=== PATIENT | male | born 1955 | race Caucasian/White ===

== ENCOUNTER 2020-02-14 17:01 | Emergency (ER) | payer MEDICARE ==
--- NOTE | 2020-02-14 18:05 | EDM.PDOC ---
ED HPI GENERAL MEDICAL PROBLEM - General Chief Complaint: Abdominal Pain Stated Complaint: CHEST/ABDOMINAL PAIN Time Seen by Provider: 02/14/20 17:17 Source of Information: Reports: Patient History Limitations: Reports: No Limitations, Other (The patient exhibits pressured speech and run-on sentences. Difficult to get a word in edgewise her asked specific questions. He does not recall things that I told him earlier in the conversation) - History of Present Illness Onset: Today Duration: Day(s): (3. Patient states that the current episode of pain and nausea and dry heaves has been occurring intermittently for the last 3 days, but he did have a similar episode several weeks ago.), Waxing/Waning Location: Reports: Abdomen, Radiates to (Low back) Quality: Reports: Ache, Stabbing Severity: Severe Worsens with: Reports: Eating (Patient notes that today, approximately 11:00 he had an [employer] dip and a milkshake and shortly thereafter had excruciating pain and dry heaves) Associated Symptoms: Reports: Diaphoresis, Fever/Chills, Loss of Appetite, Nausea/Vomiting. Denies: Chest Pain, Cough, Rash, Shortness of Breath Treatments SPECIAL PROCEDURES NURSE: Reports: Aspirin, NSAIDS - Related Data Allergies Allergy/AdvReac Type Severity Reaction Status Date / Time No Known Allergies Allergy Verified 02/14/20 17:40 Home Meds: Home Meds Clopidogrel [Plavix] 75 mg PO DAILY 11/26/17 [History] Levothyroxine Sodium [Synthroid] 250 mcg PO DAILY 11/26/17 [History] Nitroglycerin [Nitrostat] 0.4 mg SL ASDIRECTED 11/26/17 [History] atorvaSTATin [Lipitor] 40 mg PO DAILY 11/26/17 [History] Aspirin 325 mg PO DAILY 02/14/20 [History] Past Medical History Cardiovascular History: Reports: Angina, Bacterial Endocarditis, High Cholesterol, Hypertension, VT, Stents, Other (See Below) Other Cardiovascular History: pericarditis 10 years ago after a bout of pneumonia, 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 Gastrointestinal History: Reports: Other (See Below) Other Gastrointestinal History: recent no BM since 02/12/2020, hernia near umbilicus Musculoskeletal History: Reports: Back Pain, Chronic Endocrine/Metabolic History: Reports: Hypothyroidism, Obesity/BMI 30+ - Past Surgical History Cardiovascular Surgical History: Reports: Coronary Artery Bypass, Coronary Artery Stent GI Surgical History: Reports: None Social & Family History - Family History Family Medical History: Unobtainable - Tobacco Use Smoking Status *Q: Former Smoker Packs/Tins Daily: 1 Used Tobacco, but Quit: Yes Month/Year Tobacco Last Used: 06/2012 Second Hand Smoke Exposure: Yes - Caffeine Use Caffeine Use: Reports: Coffee - Recreational Drug Use Recreational Drug Use: No - Living Situation & Occupation Living situation: Reports: ED ROS GENERAL - Review of Systems Review Of Systems: See Below Constitutional: Reports: Chills, Diaphoresis, Decreased Appetite HEENT: Reports: No Symptoms Respiratory: Denies: Shortness of Breath, Wheezing, Pleuritic Chest Pain, Cough Cardiovascular: Denies: Chest Pain, Palpitations GI/Abdominal: Reports: Abdominal Pain, Decreased Appetite, Nausea, Vomiting Musculoskeletal: Reports: No Symptoms Skin: Reports: Pruritis. Denies: Rash (Complains of itching when I first enter the room but no rash seen) Neurological: Reports: No Symptoms ED EXAM, GI/ABD - Physical Exam Exam: See Below Exam Limited By: Other (The patient repeatedly interrupts this examiner and clearly does not listen to me when I am trying to explain planned evaluation and treatment in the ED) General Appearance: Alert, Anxious, Obese Eyes: Bilateral: Normal Appearance (Very mild bilateral scleral icterus), EOMI Ears: Normal External Exam Nose: Normal Inspection Throat/Mouth: Other (very dry mucous membranes) Head: Atraumatic, Normocephalic Neck: Normal Inspection, Supple, Non-Tender Respiratory/Chest: No Respiratory Distress, Lungs Clear, Normal Breath Sounds Cardiovascular: Normal Peripheral Pulses, Regular Rate, Rhythm, No Murmur GI/Abdominal Exam: Normal Bowel Sounds, Distended, Hepatomegaly, Splenomegaly, Other (midline ventral hernia). No: Guarding, Rebound Back Exam: Full Range of Motion Extremities: Normal Inspection, Normal Range of Motion Neurological: Alert, Oriented Psychiatric: Anxious Skin Exam: Warm, Dry, Intact, No Rash. No: Jaundice Lymphatic: No Adenopathy EKG INTERPRETATION EKG Date: 02/14/20 Time: 19:00 Rhythm: NSR Rate (Beats/Min): 89 Sharon: Normal P-Wave: Present QRS: Normal ST-T: Normal Course - Vital Signs Text/Narrative:: Differential diagnosis after initial evaluation includes inferior cardiac ischemia, cholelithiasis, cholecystitis, pancreatitis, gastritis, peptic ulcer disease, viral gastroenteritis, sepsis. The patient initially appears dehydrated and has abdominal pain, nausea, and vomiting. We'll treat initially with a 1 L IV fluid bolus, IV Dilaudid, and IV Zofran. At 2024 I am informed by spray technician that ultrasound does show multiple gallstones some of which appear to be in the duct. Gallbladder wall is very slightly thickened (4 mm). At 2044 I discussed the patient with Dr. Espinoza who recommended the patient received ERCP at an outside facility. He would like to see the patient back in clinic early this week. At 2049 hrs. I discussed the patient with GI specialist Dr. Kay from [facility] who recommended the patient be admitted there for ERCP to be done tomorrow. The patient has been accepted for transfer to [facility] by Dr. Lopez at 2100 hrs. Last Recorded V/S: Last Vital Signs Temp 37.7 C 02/14/20 18:02 Pulse 96 02/14/20 18:02 Resp 15 02/14/20 18:02 BP 149/64 H 02/14/20 18:02 Pulse Ox 93 L 02/14/20 18:02 - Orders/Labs/Meds Orders: Active Orders 24 hr Category Date Time Status EKG Documentation Completion [RC] ASDIRECTED Care 02/14/20 18:26 Active NPO [Nothing Per Oral Diet] [DIET] Diet 02/15/20 Breakfast Active Chest 2V [CR] Stat Exams 02/14/20 18:24 Taken EKG 12 Lead [EK] Urgent Ther 02/14/20 18:24 Ordered Labs: Laboratory Tests 02/14/20 02/14/20 02/14/20 Range/Units 18:24 18:41 18:41 WBC 10.5 (4.5-11.0) K/uL RBC 5.27 (4.30-5.90) M/uL Hgb 15.2 H (12.0-15.0) g/dL Hct 46.7 (40.0-54.0) % MCV 89 (80-98) fL MCH 29 (27-31) pg MCHC 33 (32-36) % Plt Count 220 (150-400) K/uL PT (9.5-12.0) sec INR (0.80-1.20) Sodium (140-148) mmol/L Potassium (3.6-5.2) mmol/L Chloride (100-108) mmol/L Carbon Dioxide (21-32) mmol/L Anion Gap (5.0-14.0) mmol/L BUN (7-18) mg/dL Creatinine (0.8-1.3) mg/dL Est Cr Clr Drug Dosing mL/min Estimated GFR (MDRD) (>60) Glucose (74-106) mg/dL Lactic Acid (0.4-2.0) mmol/L Calcium (8.5-10.1) mg/dL Total Bilirubin (0.2-1.0) mg/dL AST (15-37) U/L ALT (12-78) U/L Alkaline Phosphatase (46-116) U/L Troponin I < 0.017 (0.000-0.056) ng/mL Total Protein (6.4-8.2) g/dL Albumin (3.4-5.0) g/dL Globulin (2.3-3.5) g/dL Albumin/Globulin Ratio (1.2-2.2) Lipase 756 H (73-393) U/L TSH, Ultra Sensitive (0.358-3.740) uIU/mL Urine Color Brown A (YELLOW) Urine Appearance Slightly cloudy A (CLEAR) Urine pH 5.5 (5.0-8.0) Ur Specific [place] >= 1.030 (1.008-1.030) Urine Protein >=300 H (NEGATIVE) mg/dL Urine Glucose (UA) Negative (NEGATIVE) mg/dL Urine Ketones Trace H (NEGATIVE) mg/dL Urine Occult Blood Moderate H (NEGATIVE) Urine Nitrite Negative (NEGATIVE) Urine Bilirubin Large H (NEGATIVE) Urine Urobilinogen 0.2 (0.2-1.0) EU/dL Ur Leukocyte Esterase Negative (NEGATIVE) Urine RBC 10-20 H (0-5) Urine WBC Not seen (0-5) Ur Epithelial Cells Not seen Amorphous Sediment Few Urine Bacteria Few Urine Mucus Many Urine Other See note 02/14/20 02/14/20 02/14/20 Range/Units 18:41 18:41 18:41 WBC (4.5-11.0) K/uL RBC (4.30-5.90) M/uL Hgb (12.0-15.0) g/dL Hct (40.0-54.0) % MCV (80-98) fL MCH (27-31) pg MCHC (32-36) % Plt Count (150-400) K/uL PT 11.9 (9.5-12.0) sec INR 1.11 (0.80-1.20) Sodium 134 L (140-148) mmol/L Potassium 3.4 L (3.6-5.2) mmol/L Chloride 100 (100-108) mmol/L Carbon Dioxide 23 (21-32) mmol/L Anion Gap 14.4 H (5.0-14.0) mmol/L BUN 17 (7-18) mg/dL Creatinine 1.1 (0.8-1.3) mg/dL Est Cr Clr Drug Dosing 68.74 mL/min Estimated GFR (MDRD) > 60 (>60) Glucose 122 H (74-106) mg/dL Lactic Acid 1.6 (0.4-2.0) mmol/L Calcium 8.9 (8.5-10.1) mg/dL Total Bilirubin 10.3 H (0.2-1.0) mg/dL AST 166 H (15-37) U/L ALT 500 H (12-78) U/L Alkaline Phosphatase 358 H (46-116) U/L Troponin I (0.000-0.056) ng/mL Total Protein 7.2 (6.4-8.2) g/dL Albumin 3.2 L (3.4-5.0) g/dL Globulin 4.0 H (2.3-3.5) g/dL Albumin/Globulin Ratio 0.8 L (1.2-2.2) Lipase (73-393) U/L TSH, Ultra Sensitive (0.358-3.740) uIU/mL Urine Color (YELLOW) Urine Appearance (CLEAR) Urine pH (5.0-8.0) Ur Specific [place] (1.008-1.030) Urine Protein (NEGATIVE) mg/dL Urine Glucose (UA) (NEGATIVE) mg/dL Urine Ketones (NEGATIVE) mg/dL Urine Occult Blood (NEGATIVE) Urine Nitrite (NEGATIVE) Urine Bilirubin (NEGATIVE) Urine Urobilinogen (0.2-1.0) EU/dL Ur Leukocyte Esterase (NEGATIVE) Urine RBC (0-5) Urine WBC (0-5) Ur Epithelial Cells Amorphous Sediment Urine Bacteria Urine Mucus Urine Other 02/14/20 Range/Units 18:41 WBC (4.5-11.0) K/uL RBC (4.30-5.90) M/uL Hgb (12.0-15.0) g/dL Hct (40.0-54.0) % MCV (80-98) fL MCH (27-31) pg MCHC (32-36) % Plt Count (150-400) K/uL PT (9.5-12.0) sec INR (0.80-1.20) Sodium (140-148) mmol/L Potassium (3.6-5.2) mmol/L Chloride (100-108) mmol/L Carbon Dioxide (21-32) mmol/L Anion Gap (5.0-14.0) mmol/L BUN (7-18) mg/dL Creatinine (0.8-1.3) mg/dL Est Cr Clr Drug Dosing mL/min Estimated GFR (MDRD) (>60) Glucose (74-106) mg/dL Lactic Acid (0.4-2.0) mmol/L Calcium (8.5-10.1) mg/dL Total Bilirubin (0.2-1.0) mg/dL AST (15-37) U/L ALT (12-78) U/L Alkaline Phosphatase (46-116) U/L Troponin I (0.000-0.056) ng/mL Total Protein (6.4-8.2) g/dL Albumin (3.4-5.0) g/dL Globulin (2.3-3.5) g/dL Albumin/Globulin Ratio (1.2-2.2) Lipase (73-393) U/L TSH, Ultra Sensitive 3.037 (0.358-3.740) uIU/mL Urine Color (YELLOW) Urine Appearance (CLEAR) Urine pH (5.0-8.0) Ur Specific [place] (1.008-1.030) Urine Protein (NEGATIVE) mg/dL Urine Glucose (UA) (NEGATIVE) mg/dL Urine Ketones (NEGATIVE) mg/dL Urine Occult Blood (NEGATIVE) Urine Nitrite (NEGATIVE) Urine Bilirubin (NEGATIVE) Urine Urobilinogen (0.2-1.0) EU/dL Ur Leukocyte Esterase (NEGATIVE) Urine RBC (0-5) Urine WBC (0-5) Ur Epithelial Cells Amorphous Sediment Urine Bacteria Urine Mucus Urine Other Meds: Medications Discontinued Medications Generic Name Dose Route Start Last Admin Trade Name Khariq PRN Reason Stop Dose Admin Hydromorphone HCl 0.5 mg 02/14/20 18:27 02/14/20 18:42 Dilaudid IVPUSH 02/14/20 18:28 0.5 mg ONETIME ONE Administration Sodium Chloride 1,000 mls @ 999 mls/hr 02/14/20 18:26 02/14/20 18:56 Normal Saline IV 02/14/20 19:26 999 mls/hr .BOLUS ONE Administration Sodium Chloride 1,000 mls @ 999 mls/hr 02/14/20 20:02 02/14/20 20:09 Normal Saline IV 02/14/20 21:02 999 mls/hr .BOLUS ONE Administration Ondansetron HCl 4 mg 02/14/20 18:26 02/14/20 18:42 Zofran IVPUSH 02/14/20 18:27 4 mg ONETIME ONE Administration Departure - Departure Time of Disposition: 21:04 Disposition: DC/Tfer to [facility] Clinical Impression: Cholecystitis Cholelithiasis with acute cholecystitis with biliary obstruction Qualifiers: Cholelithiasis location: gallbladder and bile duct Qualified Code(s): K80.63 - Calculus of gallbladder and bile duct with acute cholecystitis with obstruction - Discharge Information Instructions: Cholecystitis, [id number] Referrals: Thiago Pacheco NP [Primary Care Provider] - Forms: ED Department Discharge Sepsis Event Note - Focused Exam Vital Signs: Vital Signs Temp Pulse Resp BP Pulse Ox 02/14/20 18:02 37.7 C 96 15 149/64 H 93 L 02/14/20 17:19 37.8 C 102 H 24 H 152/113 H 96 Date Exam was Performed: 02/14/20 Time Exam was Performed: 21:04 - My Orders Last 24 Hours: My Active Orders 02/14/20 18:24 Chest 2V [CR] Stat EKG 12 Lead [EK] Urgent 02/14/20 18:26 EKG Documentation Completion [RC] ASDIRECTED 02/15/20 Breakfast NPO [Nothing Per Oral Diet] [DIET] - Assessment/Plan Last 24 Hours: My Active Orders 02/14/20 18:24 Chest 2V [CR] Stat EKG 12 Lead [EK] Urgent 02/14/20 18:26 EKG Documentation Completion [RC] ASDIRECTED 02/15/20 Breakfast NPO [Nothing Per Oral Diet] [DIET]
[2020-02-14] MEDS: HYDROmorphone 0.5 MG/0.5 ML Syringe IVPUSH ONE (18:42)
[2020-02-14] MEDS: Ondansetron 4 MG/2 ML SDV IVPUSH ONE (18:42)
[2020-02-14] MEDS: Sodium Chloride 0.9% 1,000 ML IV ONE ×2 (18:56→20:09)
--- NOTE | 2020-02-14 20:54 | CRLUS ---
INDICATION: Abdominal pain. FINDINGS: An abdominal ultrasound shows mild increased echogenicity of the liver. Normal liver size and contour. No focal liver lesions identified. Dilation of the common bile duct measuring 1.0 cm. No intrahepatic bile duct dilation. Gallstones in the gallbladder. No gallbladder wall thickening or pericholecystic fluid. Negative sonographic Aceves`s sign. The pancreas is not well visualized. No abnormalities identified in the visualized portions of the aorta, IVC, and right kidney. No right-sided hydronephrosis. No free fluid. IMPRESSION: 1. Cholelithiasis. No sonographic evidence of cholecystitis. 2. Dilation of the common bile duct could be due to a distal obstructing stone. Consider MRCP for more complete evaluation of the common bile duct. Dictated by Christian Treviño MD @ 02/14/2020 8:53:18 PM Dictated by: Christian Treviño MD @ 02/14/2020 20:53:41 (Electronically Signed)
[2020-02-14] MEDS: HYDROmorphone 1 MG/ML Syringe IVPUSH ONE (21:21)
[2020-02-14] MEDS: Sodium Chloride 0.9% 1,000 ML IV SCH (21:22)
[2020-02-15] MEDS: Acetaminophen 500 MG Tab PO ONE (00:33)
[2020-02-15] MEDS: Ampicillin/Sulbactam Na 3 GM in Sodium Chloride 0.9% 100 ML IV ONE (00:34)
--- NOTE | 2020-02-15 10:07 | CR ---
CHEST: 2 view CLINICAL HISTORY:Epigastric pain COMPARISON:None FINDINGS: Heart is mildly enlarged. Patient has had previous sternotomy. There is some widening of the superior mediastinum. This may be due to on widening of the aortic arch brachycephalic vessels. No mass is identified. There has been previous sternotomy. IMPRESSION: Widening of the upper mediastinum most likely represents an widening of the aortic arch and proximal brachiocephalic vessels Previous sternotomy No acute cardiopulmonary process
== END 2020-02-15 00:53 | disposition critical access hospital (66) ==
LOC: JP.ED 17:01
DX: K80.63 Calculus of gallbladder and bile duct with acute cholecystitis with obstruction (principal); E03.9 Hypothyroidism, unspecified; E78.00 Pure hypercholesterolemia, unspecified; I10 Essential (primary) hypertension; I25.2 Old myocardial infarction; E66.9 Obesity, unspecified; Z68.38 Body mass index [BMI] 38.0-38.9, adult; Z79.899 Other long term (current) drug therapy; Z87.891 Personal history of nicotine dependence; Z95.5 Presence of coronary angioplasty implant and graft; Z79.02 Long term (current) use of antithrombotics/antiplatelets; Z79.82 Long term (current) use of aspirin
CPT/HCPCS: 36415; 71046; 76705; 80053; 81001; 83605; 83690; 84443; 84484; 85027; 85610; 93005; 93010; 96361; 96374; 96375; 96376; 99285; A9270; J0295; J1170; J2405; J7030; J7050

== ENCOUNTER 2022-02-28 05:29 | Inpatient (IN) | payer MEDICARE ==
[2022-02-28] MEDS ORDERED: Lactated Ringers 1,000 ML IV SCH (05:45)
[2022-02-28] MEDS ORDERED: Nozin Nasal Sanitizer NASBOTH SCH (06:00)
[2022-02-28] MEDS ORDERED: Bupivacaine 0.5% 50 ML MDV ONE (06:49)
[2022-02-28] MEDS ORDERED: ceFAZolin 2 GM in Premix Bag 1 BAG IV ONE (07:00)
[2022-02-28] MEDS ORDERED: Propofol 200 MG/20 ML SDV ONE (07:19)
[2022-02-28] MEDS ORDERED: fentaNYL 100 MCG/2 ML SDV ONE (07:19)
[2022-02-28] MEDS ORDERED: Midazolam 1 MG/ML 2 ML SDV ONE ×2 (07:19→08:35)
[2022-02-28] MEDS ORDERED: Lactated Ringers 1,000 ML ONE (08:11)
[2022-02-28] MEDS ORDERED: oxyCODONE 5 MG Tab PO PRN (09:57)
[2022-02-28] MEDS ORDERED: Nitroglycerin 0.4 MG Tab.SL SL PRN (10:01)
[2022-02-28] MEDS: Sodium Chloride 0.9% 1,000 ML IV SCH ×2 (11:52→21:03)
[2022-02-28] MEDS: Acetaminophen 500 MG Tab PO SCH ×3 (12:48→23:37)
[2022-02-28] MEDS: ceFAZolin 1 GM in Premix Bag 1 BAG IV SCH ×2 (14:31→21:23)
[2022-02-28] MEDS: traMADol 50 MG Tab PO PRN ×2 (14:58→23:37)
[2022-02-28] MEDS: oxyCODONE 5 MG Tab PO PRN ×2 (17:13→21:03)
[2022-02-28] MEDS: HYDROmorphone 0.5 MG/0.5 ML Syringe IVPUSH PRN (18:13)
[2022-02-28] MEDS: Nozin Nasal Sanitizer NASBOTH SCH (20:31)
[2022-02-28] MEDS: Docusate Sodium 100 MG Cap PO SCH (20:31)
[2022-02-28] MEDS: Ketorolac 30 MG/ML SDV IVPUSH SCH (20:31)
[2022-03-01] MEDS: HYDROmorphone 0.5 MG/0.5 ML Syringe IVPUSH PRN (03:06)
[2022-03-01] MEDS: Acetaminophen 500 MG Tab PO SCH ×4 (05:06→23:15)
[2022-03-01] MEDS: Ketorolac 30 MG/ML SDV IVPUSH SCH (05:06)
[2022-03-01] MEDS: ceFAZolin 1 GM in Premix Bag 1 BAG IV SCH (05:07)
[2022-03-01] MEDS: Sodium Chloride 0.9% 1,000 ML IV SCH (05:13)
[2022-03-01] MEDS: Levothyroxine 100 MCG Tab PO SCH (08:03)
[2022-03-01] MEDS: oxyCODONE 5 MG Tab PO PRN ×4 (08:04→21:59)
[2022-03-01] MEDS: Levothyroxine 50 MCG Tab PO SCH (08:04)
[2022-03-01] MEDS: Nozin Nasal Sanitizer NASBOTH SCH ×2 (09:16→21:57)
[2022-03-01] MEDS: Docusate Sodium 100 MG Cap PO SCH ×2 (09:16→21:58)
[2022-03-01] MEDS: Clopidogrel 75 MG Tab PO SCH (09:16)
[2022-03-01] MEDS: atorvaSTATin 20 MG Tab PO SCH (09:16)
[2022-03-01] MEDS: Celecoxib 200 MG Cap PO SCH (21:58)
[2022-03-02] MEDS: oxyCODONE 5 MG Tab PO PRN ×2 (03:14→11:16)
[2022-03-02] MEDS: Acetaminophen 500 MG Tab PO SCH ×4 (05:47→23:34)
[2022-03-02] MEDS: atorvaSTATin 20 MG Tab PO SCH (08:36)
[2022-03-02] MEDS: Levothyroxine 50 MCG Tab PO SCH (08:36)
[2022-03-02] MEDS: Docusate Sodium 100 MG Cap PO SCH ×2 (08:36→21:19)
[2022-03-02] MEDS: Levothyroxine 100 MCG Tab PO SCH (08:36)
[2022-03-02] MEDS: Celecoxib 200 MG Cap PO SCH (08:36)
[2022-03-02] MEDS: Clopidogrel 75 MG Tab PO SCH (08:36)
[2022-03-02] MEDS: Nozin Nasal Sanitizer NASBOTH SCH ×2 (08:39→21:13)
[2022-03-02] MEDS: traMADol 50 MG Tab PO PRN (23:34)
[2022-03-03] MEDS: Acetaminophen 500 MG Tab PO SCH (06:21)
[2022-03-03] MEDS: traMADol 50 MG Tab PO PRN (07:23)
[2022-03-03] MEDS: Levothyroxine 100 MCG Tab PO SCH (08:51)
[2022-03-03] MEDS: Clopidogrel 75 MG Tab PO SCH (08:51)
[2022-03-03] MEDS: Levothyroxine 50 MCG Tab PO SCH (08:51)
[2022-03-03] MEDS: Nozin Nasal Sanitizer NASBOTH SCH (08:52)
[2022-03-03] MEDS: atorvaSTATin 20 MG Tab PO SCH (08:56)
[2022-03-03] MEDS: Docusate Sodium 100 MG Cap PO SCH (08:56)
== END 2022-03-03 11:20 | disposition home or self-care (01) | DRG 470 ==
LOC: JP.SDS 05:29 → JP.MS 09:57 → JP.SDS 03-01 08:38 → JP.MS 03-01 08:38
PROVIDERS: ADMIT Specialist; ATTEND Specialist
PROC: 0SRB01A Replacement of Left Hip Joint with Metal Synthetic Substitute, Uncemented, Open Approach (ICD-10-PCS; principal; 2022-02-28)
DX: M17.12 Unilateral primary osteoarthritis, left knee (principal); Z68.41 Body mass index [BMI] 40.0-44.9, adult; I10 Essential (primary) hypertension; E66.01 Morbid (severe) obesity due to excess calories; E03.9 Hypothyroidism, unspecified; I25.10 Atherosclerotic heart disease of native coronary artery without angina pectoris; Z79.890 Hormone replacement therapy; Z79.899 Other long term (current) drug therapy
CPT/HCPCS: 27130; 36415; 72170; 72170-26; 85027; 97110-GP; 97116-GP; 97162-GP; 97165-GO; 97530-GP; 97535-GP; 99024; A9270-GY; C1713; C1776; J0690; J1170; J1885; J2250; J2704; J3010; J3490; J7030; J7120

== ENCOUNTER 2023-12-13 07:53 | Day surgery (SDC) | payer MEDICARE ==
[2023-12-13] MEDS ORDERED: fentaNYL 50 MCG/ML SDV ONE (07:58)
[2023-12-13] MEDS ORDERED: Propofol 200 MG/20 ML SDV ONE (07:58)
[2023-12-13] MEDS ORDERED: Midazolam 1 MG/ML 2 ML SDV ONE (07:58)
[2023-12-13] MEDS: Sodium Chloride 0.9% 1,000 ML IV SCH (08:30)
== END 2023-12-13 10:26 | disposition home or self-care (01) ==
LOC: JP.SDS 07:53
PROVIDERS: ATTEND Surgery
DX: Z12.11 Encounter for screening for malignant neoplasm of colon (principal); D12.3 Benign neoplasm of transverse colon; K57.30 Diverticulosis of large intestine without perforation or abscess without bleeding
CPT/HCPCS: 45380; 88305; J2250; J2704; J3010; J7030

== ENCOUNTER 2024-09-30 08:12 | Day surgery (SDC) | payer MEDICARE ==
[2024-09-30] MEDS ORDERED: fentaNYL 100 MCG/2 ML SDV ONE ×2 (08:40→11:48)
[2024-09-30] MEDS ORDERED: Propofol 200 MG/20 ML SDV ONE ×2 (08:40→12:27)
[2024-09-30] MEDS ORDERED: Midazolam 1 MG/ML 2 ML SDV ONE ×2 (08:41→11:49)
[2024-09-30 08:49] LABS: HEMATOCRIT 44.1 % (38.4-49.7); HEMOGLOBIN 14.9 g/dL (12.9-16.9); MEAN CORPUSCULAR HEMOGLOBIN 30.3 pg (31.6-35.5); MEAN CORPUSCULAR HGB CONC 33.8 g/dL (31.6-35.5); MEAN CORPUSCULAR VOLUME 89.8 fL (81.4-99.0); RED BLOOD CELL COUNT 4.91 M/uL (4.14-5.76)
[2024-09-30] MEDS: Nozin Nasal Sanitizer NASBOTH SCH ×2 (09:04→20:10)
[2024-09-30] MEDS: Lactated Ringers 1,000 ML IV SCH (09:05)
[2024-09-30 09:09] LABS: ALANINE AMINOTRANSFERASE,ALT 31 U/L (12-78); ALBUMIN 3.8 g/dL (3.4-5.0); ALKALINE PHOSPHATASE 84 U/L (46-116); ANION GAP 10.2 mmol/L (5.0-14.0); ASPARTATE AMNIOTRANSFERASE,AST 17 U/L (15-37); BILIRUBIN TOTAL 1.5 mg/dL (0.2-1.0); BLOOD UREA NITROGEN,BUN 16 mg/dL (7-18); CALCIUM 8.6 mg/dL (8.5-10.1); CARBON DIOXIDE,CO2 26 mmol/L (21-32); CHLORIDE,CL 105 mmol/L (100-108); CREATININE 1.2 mg/dL (0.8-1.3); EST CRCL DRUG DOSING (CG) 58.92 mL/min; ESTIMATED GFR 66 mL/min (>60); GLUCOSE RANDOM 114 mg/dL (74-106); POTASSIUM,K 4.1 mmol/L (3.6-5.2); PROTEIN TOTAL,TP 7.5 g/dL (6.4-8.2); SODIUM,NA 141 mmol/L (140-148)
[2024-09-30] MEDS ORDERED: Bupivacaine 0.5% 30 ML SDV ONE (11:16)
[2024-09-30] MEDS: ceFAZolin 2 GM in Premix Bag 1 BAG IV ONE (11:30)
[2024-09-30] MEDS ORDERED: Lactated Ringers 1,000 ML ONE (12:00)
[2024-09-30] MEDS ORDERED: ePHEDrine 50 MG/ML SDV ONE (12:19)
[2024-09-30] MEDS ORDERED: Ondansetron 4 MG Tab.DIS PO PRN (13:43)
[2024-09-30] MEDS ORDERED: Morphine 2 MG/ML SYRINGE IVPUSH PRN (13:43)
[2024-09-30] MEDS: Tranexamic Acid 1,000 MG in Sodium Chloride 0.9% 50 ML IV ONE (13:44)
[2024-09-30] MEDS ORDERED: ceFAZolin 1 GM in Sodium Chloride 0.9% 50 ML IV SCH (13:45)
[2024-09-30] MEDS ORDERED: Magnesium Hydroxide 400 MG/5 ML Susp 30 ML Cup PO PRN (13:53)
[2024-09-30] MEDS ORDERED: Albuterol 6.7 GM Inhaler INH SCH (14:00)
[2024-09-30] MEDS ORDERED: Nitroglycerin 0.4 MG Tab.SL SL PRN (14:00)
[2024-09-30] MEDS ORDERED: Albuterol 6.7 GM Inhaler INH PRN (14:12)
[2024-09-30] MEDS: Ketorolac 15 MG/ML SDV IVPUSH SCH (15:45)
[2024-09-30] MEDS: Acetaminophen 325 MG Tab PO SCH (16:44)
[2024-09-30] MEDS: Docusate Sodium 100 MG Cap PO SCH (17:39)
[2024-09-30] MEDS: traMADol 50 MG Tab PO PRN (17:39)
[2024-09-30] MEDS: oxyCODONE 5 MG Tab PO PRN (19:07)
[2024-09-30] MEDS: ceFAZolin 1 GM in Premix Bag 1 BAG IV SCH (19:10)
[2024-09-30] MEDS: atorvaSTATin 20 MG Tab PO SCH (20:09)
[2024-10-01] MEDS: oxyCODONE 5 MG Tab PO PRN (04:04)
[2024-10-01] MEDS: Levothyroxine 100 MCG Tab PO SCH (07:08)
[2024-10-01] MEDS: Ezetimibe 10 MG Tab PO SCH (08:34)
[2024-10-01] MEDS: Furosemide 20 MG Tab PO SCH (08:36)
[2024-10-01] MEDS: Aspirin 81 MG Tab.EC PO SCH (08:37)
[2024-10-01] MEDS: Isosorbide Mononitrate 30 MG Tab.ER PO SCH (08:37)
[2024-10-01] MEDS: Metoprolol Succinate 50 MG Tab.ER PO SCH (08:38)
[2024-10-01] MEDS ORDERED: Non-Formulary Medication 1 Each (Atorvastatin [Lipitor] 40 MG Tablet) PO SCH (09:00)
[2024-10-01] MEDS ORDERED: Isosorbide Mononitrate 30 MG Tab.ER PO SCH (09:00)
[2024-10-01] MEDS ORDERED: Non-Formulary Medication 1 Each (Isosorbide Mononitrate [Isosorbide Mononitrate Er] 60 MG PO SCH (09:00)
[2024-10-01] MEDS ORDERED: Metoprolol Succinate 25 MG Tab.ER PO SCH (09:00)
== END 2024-10-01 14:46 | disposition home or self-care (01) ==
LOC: JP.SDS 08:12 → JP.MS 13:43 → JP.SDS 10-01 14:46
PROVIDERS: ATTEND Specialist
DX: M16.11 Unilateral primary osteoarthritis, right hip (principal); E03.9 Hypothyroidism, unspecified; I25.10 Atherosclerotic heart disease of native coronary artery without angina pectoris; I50.42 Chronic combined systolic (congestive) and diastolic (congestive) heart failure; G47.33 Obstructive sleep apnea (adult) (pediatric); E78.5 Hyperlipidemia, unspecified; Z95.1 Presence of aortocoronary bypass graft; Z95.5 Presence of coronary angioplasty implant and graft; Z87.891 Personal history of nicotine dependence; Z79.899 Other long term (current) drug therapy
CPT/HCPCS: 01214; 20985; 27130; 36415; 72170; 80053; 85027; 87070; 87075; 87205; 97110; 97116; 97161; 97165; A9270; C1713; C1776; J0689; J0690; J1885; J2250; J2704; J3010; J3490; J7120; J0665

== ENCOUNTER 2024-10-24 08:40 | Emergency (ER) | payer MEDICARE ==
[2024-10-24 09:07] LABS: BASOPHILS ABSOLUTE AUTO 0.04 K/uL (0.00-0.10); BASOPHILS PERCENT AUTO 0.3 % (0.1-1.3); EOSINOPHILS PERCENT AUTO 0.1 % (0.0-5.4); HEMATOCRIT 38.3 % (38.4-49.7); HEMOGLOBIN 12.9 g/dL (12.9-16.9); IMMATURE GRAN ABSOLUTE AUTO 0.05 K/uL (0.00-0.23); IMMATURE GRAN PERCENT AUTO 0.4 % (0.0-0.7); LYMPHOCYTES ABSOLUTE AUTO 1.47 K/uL (0.8-3.3); LYMPHOCYTES PERCENT AUTO 10.5 % (11.4-47.7); MEAN CORPUSCULAR HEMOGLOBIN 30.9 pg (31.6-35.5); MEAN CORPUSCULAR HGB CONC 33.7 g/dL (31.6-35.5); MEAN CORPUSCULAR VOLUME 91.8 fL (81.4-99.0); MONOCYTES ABSOLUTE AUTO 2.01 K/uL (0.20-0.90); MONOCYTES PERCENT AUTO 14.4 % (3.3-12.6); NEUTROPHILS PERCENT AUTO 74.3 % (40.0-78.1); PLATELET COUNT,PLT 239 K/uL (130-375); RED BLOOD CELL COUNT 4.17 M/uL (4.14-5.76)
[2024-10-24 09:09] LABS: EOSINOPHILS ABSOLUTE AUTO 0.02 K/uL (0.00-0.40)
[2024-10-24 09:28] LABS: A/G RATIO 0.9 (1.2-2.2); ALANINE AMINOTRANSFERASE,ALT 27 U/L (12-78); ALBUMIN 3.3 g/dL (3.4-5.0); ALKALINE PHOSPHATASE 71 U/L (46-116); ASPARTATE AMNIOTRANSFERASE,AST 18 U/L (15-37); BILIRUBIN TOTAL 3.4 mg/dL (0.2-1.0); BLOOD UREA NITROGEN,BUN 16 mg/dL (7-18); CALCIUM 8.8 mg/dL (8.5-10.1); CARBON DIOXIDE,CO2 27 mmol/L (21-32); CHLORIDE,CL 100 mmol/L (100-108); CREATININE 1.2 mg/dL (0.8-1.3); EST CRCL DRUG DOSING (CG) 58.92 mL/min; ESTIMATED GFR 66 mL/min (>60); GLUCOSE RANDOM 120 mg/dL (74-106); POTASSIUM,K 3.6 mmol/L (3.6-5.2); PROTEIN TOTAL,TP 6.8 g/dL (6.4-8.2); SODIUM,NA 135 mmol/L (140-148)
[2024-10-24 09:29] LABS: ANION GAP 11.6 mmol/L (5.0-14.0)
[2024-10-24] MEDS: Morphine 4 MG/ML Syringe IVPUSH ONE (09:37)
[2024-10-24] MEDS: Sodium Chloride 0.9% 1,000 ML IV ONE (09:38)
[2024-10-24] MEDS: HYDROmorphone 0.5 MG/0.5 ML Syringe IVPUSH ONE (10:58)
[2024-10-24] MEDS: cefTRIAXone 2 GM in Sodium Chloride 0.9% 50 ML IV ONE (11:31)
== END 2024-10-24 13:03 | disposition home or self-care (01) ==
LOC: JP.ED 08:40
DX: L03.115 Cellulitis of right lower limb (principal); M25.551 Pain in right hip; I10 Essential (primary) hypertension; I25.2 Old myocardial infarction; E78.00 Pure hypercholesterolemia, unspecified; E03.9 Hypothyroidism, unspecified; E66.9 Obesity, unspecified; Z95.1 Presence of aortocoronary bypass graft; Z79.82 Long term (current) use of aspirin; Z79.899 Other long term (current) drug therapy; Z88.8 Allergy status to other drugs, medicaments and biological substances; Z68.41 Body mass index [BMI] 40.0-44.9, adult
CPT/HCPCS: 36415; 73502; 73700; 80053; 83605; 85025; 87040; 96361; 96365; 96375; 99284; J0696; J2270; J7030; 87077; 87186; 99283

== ENCOUNTER 2025-06-17 06:55 | Day surgery (SDC) | payer MEDICARE ==
[2025-06-17] MEDS ORDERED: Sodium Chloride 0.9% 10 ML Syringe FLUSH PRN (07:30)
== END 2025-06-17 08:50 | disposition home or self-care (01) ==
LOC: JP.SDS 06:55
PROVIDERS: ATTEND Ophthalmology
DX: H25.12 Age-related nuclear cataract, left eye (principal); H25.012 Cortical age-related cataract, left eye; E78.00 Pure hypercholesterolemia, unspecified; I10 Essential (primary) hypertension; E03.9 Hypothyroidism, unspecified; E66.9 Obesity, unspecified; Z68.30 Body mass index [BMI] 30.0-30.9, adult; Z88.8 Allergy status to other drugs, medicaments and biological substances; Z79.890 Hormone replacement therapy; Z79.899 Other long term (current) drug therapy; Z79.82 Long term (current) use of aspirin
CPT/HCPCS: 66984; V2632; 00142-QZ